=== PATIENT | male | born 1995 | race Caucasian/White ===

== ENCOUNTER 2018-03-03 13:38 | Emergency (ER) | payer BC ==
[2018-03-03] MEDS ORDERED: Lidocaine 1% w/Epinephrine 1:100K 30 ML VIAL ONE (13:50)
[2018-03-03] MEDS ORDERED: Lidocaine 1% (PF) 30 ML VIAL ONE (13:52)
[2018-03-03] MEDS ORDERED: Adacel (T-DAP) 0.5 ML VIAL ONE (14:39)
== END 2018-03-03 14:32 | disposition home or self-care (01) ==
LOC: NAV ERS 13:38
DX: S61.411A Laceration without foreign body of right hand, initial encounter (principal); W26.8XXA Contact with other sharp object(s), not elsewhere classified, initial encounter
CPT/HCPCS: 12001; 90471; 90715; J2001